=== PATIENT | male | born 1930 | race Caucasian/White ===

== ENCOUNTER → 2016-07-18 07:59 | Outpatient (CLI) | payer MEDICARE, OTHER ==
[2015-09-01 12:52] VITALS: BMI 34.1
[~2016-07-18 07:59] MED LIST: APAP325 MG PO; BACTROBAN NASAL1 GM TP; BOUDREAUXS113 GM TP; BUPRENORPHI0.3 MG/ML IV; CELEBREX200 MG PO; CELEXA20 MG PO; COUMADIN3 MG PO; COUMADIN5 MG PO; DULCOLAX10 MG/SUPP RC; FLORINEF 0.1 M0.1 MG PO; FOLTX TABLET1 TAB PO; HEPARIN SOD5000 U/ML SQ; LAC-HYDRIN 5226 ML TP; LOVENOX30 MG/0.3 SQ; MEGACE40 MG PO; MELATONIN 3 MG1 TAB PO; MIRALAX17 GM PO; NEPHRO-VITE RX1 TAB PO; NORVASC2.5 MG PO; OFIRMEV PO; ONDANSETRON4 MG/2 M3 IV; PEPCID20 MG PO; PROAMATINE10 MG PO; PROAMATINE5 MG PO; PROCEL; PROTEIN LIQUID30 ML PO; PROTONIX40 MG PO; RENAGEL800 MG PO; RENVELA2.4 GM PO; RENVELA800 MG PO; SALINE FLUSH10 ML IJ; SENOKOT-S TABLE1 TAB PO; SENSIPAR30 MG PO; SENSIPAR60 MG PO; SODIUM CL 0.91000 ML IV; SYNTHROID75 MCG PO; SYNTHROID88 MCG PO; TUMS500 MG PO; ULTRAM50 MG PO; ZOFRAN ODT4 MG/UDTAB PO; ZOFRAN4 MG PO; ZOSYN IV; [UNRECOGNIZED DRUG - OTHER] PO; [UNRECOGNIZED DRUG - OTHER] PO; [UNRECOGNIZED DRUG - OTHER] PO
== END | disposition home or self-care (01) ==
LOC: D.US 07:59
DX: R11.2 Nausea with vomiting, unspecified (principal)

== ENCOUNTER → 2017-02-22 07:32 | Outpatient (CLI) | payer MEDICARE, OTHER ==
[2015-09-01 12:52] VITALS: BMI 34.1
== END | disposition home or self-care (01) ==
LOC: D.CT 07:32
DX: N28.89 Other specified disorders of kidney and ureter (principal)

== ENCOUNTER 2017-04-20 08:39 | Outpatient (CLI) | payer MEDICARE, OTHER ==
[2017-04-20] MEDS ORDERED: SENSIPAR30 MG PO (09:54)
[2017-04-20 09:55] LABS: BASOPHILS 0.5 % (0-2); EOSINOPHILS 2.3 % (0-7); HEMATOCRIT 42.6 % (42.0-54.0); IMMATURE GRANULOCYTES 0.2 % (0-5); LYMPHOCYTES 17.3 % (15-50); MCH 30.8 pg (26.0-34.0); MCHC 30.5 g/dL (31.0-37.0); MCV 100.9 fL (80.0-100.0); MEAN PLATELET VOLUME 9.7 fL (7.4-10.4); MONOCYTES 7.7 % (2-11); RBC 4.22 10x6/uL (4.20-6.10); RDW 14.5 % (11.5-14.5); WBC 5.7 10x3/uL (4.8-10.8)
[2017-04-20] MEDS ORDERED: CHILDREN'S ASPI81 MG PO (09:56)
[2017-04-20 09:58] VITALS: BP 111/53; BMI 25.4
[2017-04-20 10:11] LABS: ANION GAP 11.7 mmol/L (8-16); CALCIUM 9.8 mg/dL (8.5-10.1); CARBON DIOXIDE 31.7 mmol/L (21.0-32.0); CREATININE - SERUM 3.3 mg/dL (0.6-1.3); POTASSIUM - SERUM 4.4 mmol/L (3.5-5.1)
[2017-04-20 10:15] LABS: PLATELET COUNT 193 10x3/uL (130-400)
[2017-04-20 10:35] LABS: INR 1.08 (0.85-1.17); PROTIME 13.8 SECONDS (11.6-15.0)
[2017-04-20 10:37] LABS: APTT 34.5 SECONDS (22.8-39.4)
--- NOTE | 2017-04-20 15:57 | NUR ---
1225--ALL VITAL SIGNS CHARTED ON POST PROCEDURE VITAL SIGN SHEET ON CHART. JAZZY LEWIS 1500--VERN WITH RENAL IN ROOM SPEAKING WITH PT. JAZZY LEWIS [id number]--DISCHARGE INSTRUCTIONS GIVEN, PT VERBALIZES UNDERSTANDING. PT OFF UNIT VIA WC. JAZZY LEWIS
== END 2017-04-20 15:30 | disposition home or self-care (01) ==
LOC: D.OPS 08:39 → D.SP 11:00 → D.OPS 15:30
PROVIDERS: Specialist
DX: N28.89 Other specified disorders of kidney and ureter (principal); N18.6 End stage renal disease; Z99.2 Dependence on renal dialysis; Z01.812 Encounter for preprocedural laboratory examination

== ENCOUNTER → 2017-11-24 14:49 | Outpatient (CLI) | payer MEDICARE, OTHER ==
[~2017-11-24 14:49] MED LIST changes: +CHILDREN'S ASPI81 MG PO
== END | disposition home or self-care (01) ==
LOC: D.RAD 14:49
DX: R05 Cough (principal)

== ENCOUNTER → 2018-02-06 10:37 | Outpatient (CLI) | payer MEDICARE, OTHER ==
[~2018-02-06] VITALS: Ht 175.3 cm; Wt 77.3 kg
[~2018-02-06 10:37] MED LIST changes: +CYPROHEPTADINE H4 MG PO; +HYDROCODON-ACE1 EAC7 PO; +LYRICA25 MG PO; +MIDODRINE HCL5 MG PO; +NAPROXEN250 MG PO
[2018-02-06 11:16] VITALS: BP 84/36; Ht 175.3 cm; Wt 77.3 kg
[2018-02-06 11:32] LABS: BASOPHILS 0.2 % (0-2); EOSINOPHILS 1.3 % (0-7); HEMATOCRIT 42.1 % (42.0-54.0); HEMOGLOBIN 12.4 g/dL (13.5-17.5); LYMPHOCYTES 13.8 % (15-50); MCHC 29.5 g/dL (31.0-37.0); MCV 101.9 fL (80.0-100.0); MEAN PLATELET VOLUME 10.6 fL (7.4-10.4); MONOCYTES 7.9 % (2-11); NEUTROPHILS 76.8 % (40-80); RBC 4.13 10x6/uL (4.20-6.10); RDW 16.9 % (11.5-14.5); WBC 5.3 10x3/uL (4.8-10.8)
[2018-02-06 11:39] LABS: CALCIUM 8.9 mg/dL (8.5-10.1); CARBON DIOXIDE 30.8 mmol/L (21.0-32.0); CREATININE - SERUM 3.8 mg/dL (0.6-1.3); POTASSIUM - SERUM 3.8 mmol/L (3.5-5.1)
[2018-02-06 12:11] LABS: PLATELET COUNT 144 10x3/uL (130-400)
== END | disposition home or self-care (01) ==
LOC: D.CATH 10:37
PROVIDERS: Internal Medicine Cardiovascular Disease
DX: I73.9 Peripheral vascular disease, unspecified (principal); I77.4 Celiac artery compression syndrome; K55.1 Chronic vascular disorders of intestine; N28.1 Cyst of kidney, acquired; J90 Pleural effusion, not elsewhere classified; K76.89 Other specified diseases of liver; M16.11 Unilateral primary osteoarthritis, right hip; M85.80 Other specified disorders of bone density and structure, unspecified site; Z01.812 Encounter for preprocedural laboratory examination; M19.011 Primary osteoarthritis, right shoulder; Z96.642 Presence of left artificial hip joint

== ENCOUNTER 2018-02-26 08:49 | Inpatient (IN) | payer MEDICARE, OTHER ==
[2018-02-26] VITALS (17 sets, daily range): BP systolic 91–156; BP diastolic 43–81; BMI 27.8
[~2018-02-26] VITALS: Ht 175.3 cm; Wt 79.0 kg
[~2018-02-26 08:49] MED LIST changes: -CYPROHEPTADINE H4 MG PO; -HYDROCODON-ACE1 EAC7 PO; -MIDODRINE HCL5 MG PO; -NAPROXEN250 MG PO
[2018-02-26] MEDS ORDERED: CYPROHEPTADINE H4 MG PO (08:54)
[2018-02-26] MEDS ORDERED: HYDROCODON-ACE1 EAC7 PO (08:55)
[2018-02-26] MEDS ORDERED: NAPROXEN250 MG PO (08:55)
[2018-02-26] MEDS ORDERED: MIDODRINE HCL5 MG PO (08:56)
[2018-02-26 10:11] LABS: BASOPHILS 0.5 % (0-2); EOSINOPHILS 0.7 % (0-7); HEMATOCRIT 54.8 % (42.0-54.0); HEMOGLOBIN 16.2 g/dL (13.5-17.5); IMMATURE GRANULOCYTES 0.2 % (0-5); LYMPHOCYTES 17.8 % (15-50); MCH 31.3 pg (26.0-34.0); MCHC 29.6 g/dL (31.0-37.0); MCV 105.8 fL (80.0-100.0); MEAN PLATELET VOLUME 11.6 fL (7.4-10.4); MONOCYTES 6.7 % (2-11); NEUTROPHILS 74.1 % (40-80); PLATELET COUNT 116 10x3/uL (130-400); RBC 5.18 10x6/uL (4.20-6.10); RDW 17.9 % (11.5-14.5); WBC 4.1 10x3/uL (4.8-10.8)
[2018-02-26 10:32] LABS: ALBUMIN 2.9 g/dL (3.4-5.0); ANION GAP 11.5 mmol/L (8-16); BILIRUBIN - TOTAL 1.1 mg/dL (0.2-1.3); CALCIUM 9.2 mg/dL (8.5-10.1); CARBON DIOXIDE 30.2 mmol/L (21.0-32.0); POTASSIUM - SERUM 4.7 mmol/L (3.5-5.1); PROTEIN - SERUM 8.1 g/dL (6.4-8.2)
[2018-02-26 10:42] LABS: BILIRUBIN - DIRECT 0.16 mg/dL (0.00-0.30); MAGNESIUM - SERUM 2.4 mg/dL (1.8-2.4); THYROID STIMULATING HORMONE 10.88 uIU/mL (0.36-3.74)
[2018-02-26] MEDS ORDERED: SYNTHROID75 MCG PO (14:01)
[2018-02-27] VITALS (15 sets, daily range): BP systolic 66–96; BP diastolic 36–53; Ht 175.3 cm; Wt 79.0 kg
[2018-02-28] VITALS: BP 74/45
[2018-02-28 04:00] VITALS: BP 86/35
[2018-02-28 08:11] VITALS: BP 88/41
[2018-02-28 20:00] VITALS: BP 106/52
[2018-03-01 08:19] VITALS: BP 91/47
[2018-03-01 15:22] VITALS: BP 94/46
[2018-03-01 20:00] VITALS: BP 87/43
[2018-03-02 04:00] VITALS: BP 123/62
[2018-03-02 09:30] VITALS: BP 100/45
[2018-03-02 12:56] VITALS: BP 89/39
[2018-03-02 16:35] VITALS: BP 77/38
== END 2018-03-02 21:35 | DRG 193 ==
LOC: D.ER 08:49 → D.ICU 11:28 → D.M2 11:28 → D.EDHOLD 11:28 → D.M2 11:59 → D.ICU 14:23 → D.M2 02-27 13:01
PROVIDERS: Emergency Medicine
PROC: 5A09357 Assistance with Respiratory Ventilation, Less than 24 Consecutive Hours, Continuous Positive Airway Pressure (ICD-10-PCS; principal; 2018-02-27)
DX: J15.9 Unspecified bacterial pneumonia (principal); N18.6 End stage renal disease; R40.2123 Coma scale, eyes open, to pain, at hospital admission; R40.2213 Coma scale, best verbal response, none, at hospital admission; E44.0 Moderate protein-calorie malnutrition; E03.9 Hypothyroidism, unspecified; Z68.27 Body mass index [BMI] 27.0-27.9, adult; Z66 Do not resuscitate; Z51.5 Encounter for palliative care; Z99.2 Dependence on renal dialysis; R41.82 Altered mental status, unspecified; R40.2353 Coma scale, best motor response, localizes pain, at hospital admission